=== PATIENT | female | born 1945 | race African-American/Black ===

== ENCOUNTER → 2017-02-18 | Outpatient (CLI) | payer MEDICARE, OTHER ==
[~2017-02-18] VITALS: Ht 162.6 cm; Wt 75.3 kg
[~2017-02-18] MED LIST: AMLO10TA2 PO; ASPI-630 PO; BUPIVACAINE 0.5% 50 ML VIAL. INJ ONE; IOHEXOL 300 MG/ML 50 ML VIAL. IJ ONE; methylPREDNISolone ACETATE 80 MG/ML VIAL. INT ART ONE
[2017-02-18 08:32] VITALS: BP 149/73
--- NOTE | 2017-02-18 09:31 | RAD ---
Fluoroscopically guided left hip joint injection, 02/18/2017: History: Arthritis Under local anesthesia, aseptic conditions and fluoroscopic guidance a 22-gauge spinal needle was passed into the left hip joint via an anterior approach. A small amount of iodinated contrast material was injected to confirm intra-articular positioning following which 80 mg of Depo-Medrol mixed with 3 cc of 0.5% Sensorcaine was injected into the joint as requested. The needle was then removed and hemostasis obtained. 0.7 minutes of fluoroscopy time was utilized. One fluoroscopic spot image was recorded. The patient tolerated the procedure well and left the department in good condition.
== END | disposition home or self-care (01) ==
LOC: RAD 07:41
PROVIDERS: ATTEND Nurse Practitioner Gerontology
DX: M25.552 Pain in left hip (principal)
CPT/HCPCS: 20605; 77002; J1040; J3490; Q9967

== ENCOUNTER → 2019-09-26 | Outpatient (CLI) | payer OTHER ==
[2017-02-18 08:32] VITALS: BP 149/73
[~2019-09-26] MED LIST changes: -AMLO10TA2 PO; +AMLO10TA8 PO; -BUPIVACAINE 0.5% 50 ML VIAL. INJ ONE; -IOHEXOL 300 MG/ML 50 ML VIAL. IJ ONE; -methylPREDNISolone ACETATE 80 MG/ML VIAL. INT ART ONE
--- NOTE | 2019-09-26 14:48 | RAD ---
Bilateral arterial duplex ultrasound of the extremities 09/26/2019 INDICATION: Bilateral lower extremity pain, edema. Foot coldness. STUDY: None Discussion: Ultrasound evaluation of the major arteries of the bilateral lower extremities color Doppler imaging spectral analysis. FINDINGS: There is diffuse atherosclerotic vascular disease. On the right biphasic waveforms are seen throughout without focal elevation of velocities. No changes and waveform morphology suggesting high-grade stenosis are appreciated. On the left there is a focal elevation in velocity in the proximal superficial femoral artery 95 cm per 2nd to 210 cm/s. Findings could reflect 50% or greater stenosis. Remaining left-sided velocities and waveforms are grossly unremarkable. Impression: Possible hemodynamically significant stenosis involving the proximal left SFA. Consider CT or conventional angiography for further evaluation. Electronically signed by: See Perez MD (09/26/2019 2:45 PM) [id number]
== END | disposition home or self-care (01) ==
LOC: US 14:03
PROVIDERS: ATTEND Physical Medicine & Rehabilitation
DX: I70.213 Atherosclerosis of native arteries of extremities with intermittent claudication, bilateral legs (principal)
CPT/HCPCS: 93925

== ENCOUNTER 2020-01-06 19:39 | Emergency (ER) | payer MEDICARE, OTHER ==
[~2020-01-06] VITALS: Ht 165.1 cm; Wt 77.2 kg
--- NOTE | 2020-01-06 19:59 | PHYS DOC ---
General Adult EDM: Chief Complaint: FOOT INJURY PAIN HPI: HPI: Patient is a 74 year old female who presents with complaint of injury to her right foot earlier today. Patient states that a pedro dropped onto her foot, injuring the dorsal aspect of her foot. She rates pain as moderate stating that pain is throbbing in nature and pain is worsened with weightbearing. She denies any other injuries. Patient states that she has taken a total of 2 hydrocodone for the pain but she still is having difficulty with weightbearing.[] Review of Systems: Review of Systems: Constitutional: Denies fever or chills. [] Respiratory: Denies cough or shortness of breath. [] Cardiovascular: Denies chest pain or edema. [] Musculoskeletal: Positive right foot pain. [] Integument: Denies rash. [] Heart Score: Risk Factors: Risk Factors: DM, Current or recent (<one month) smoker, HTN, HLP, family history of CAD, obesity. Risk Scores: Score 0 - 3: 2.5% MACE over next 6 weeks - Discharge Home Score 4 - 6: 20.3% MACE over next 6 weeks - Admit for Clinical Observation Score 7 - 10: 72.7% MACE over next 6 weeks - Early Invasive Strategies Allergies: Allergies: Allergies Coded Allergies Type Severity Reaction Last Updated Verified No Known Drug Allergies 02/18/17 No Physical Exam: PE: Constitutional: Well developed, well nourished, no acute distress, non-toxic appearance. [] Cardiovascular: Regular rate and rhythm[] Lungs & Thorax: Bilateral breath sounds clear to auscultation [] Extremities: Right foot demonstrates mild soft tissue swelling on the dorsal lateral aspect, overlying fourth and fifth metatarsals with tenderness overlying this area. [] EKG: EKG: [] Radiology/Procedures: Radiology/Procedures: [] Impression: PROCEDURE: FOOT RIGHT 3V EXAM: AP, oblique and lateral views of the right foot DATE: 01/06/2020 7:56 PM INDICATION: Crush injury COMPARISON: No Prior FINDINGS: No acute fracture or dislocation. Hallux valgus. Mild forefoot soft tissue swelling. Vascular calcifications are seen. Joint spaces are grossly preserved. Mild infiltration of Kagers fat pad may be reactive or related to low-lying soleus. IMPRESSION: No acute fracture or dislocation. Hallux valgus. Electronically signed by: Poncho Hanks MD (01/06/2020 8:50 PM) [facility] Course & Med Decision Making: Course & Med Decision Making Pertinent Labs and Imaging studies reviewed. (See chart for details) [] Jc Disclaimer: Jc Disclaimer: This electronic medical record was generated, in whole or in part, using a voice recognition dictation system. Departure Departure Impression: Primary Impression: Contusion of foot Qualified Codes: S90.31XA - Contusion of right foot, initial encounter Disposition: HOME, SELF-CARE Condition: STABLE Referrals: JAYY SCHULTZ MD (PCP) Patient Instructions: Contusion Scripts Diclofenac Sodium (DICLOFENAC SODIUM) 50 Mg Tablet. 1 TAB PO BID PRN for PAIN, #20 TAB Prov: ALEK SALCEDO Jr. DO 01/06/20 ALEK SALCEDO Jr. DO January 06, 2020 19:59
--- NOTE | 2020-01-06 20:53 | RAD ---
EXAM: AP, oblique and lateral views of the right foot DATE: 01/06/2020 7:56 PM INDICATION: Crush injury COMPARISON: No Prior FINDINGS: No acute fracture or dislocation. Hallux valgus. Mild forefoot soft tissue swelling. Vascular calcifications are seen. Joint spaces are grossly preserved. Mild infiltration of Kagers fat pad may be reactive or related to low-lying soleus. IMPRESSION: No acute fracture or dislocation. Hallux valgus. Electronically signed by: Poncho Hanks MD (01/06/2020 8:50 PM) [facility]
[2020-01-06] MEDS ORDERED: DICL50TA4 PO (21:30)
[2020-01-06 21:37] VITALS: BP 179/89
== END 2020-01-06 21:37 | disposition home or self-care (01) ==
LOC: ER 19:39
DX: S90.31XA Contusion of right foot, initial encounter (principal); W20.8XXA Other cause of strike by thrown, projected or falling object, initial encounter; Y93.89 Activity, other specified; Y92.89 Other specified places as the place of occurrence of the external cause; Y99.8 Other external cause status
CPT/HCPCS: 73630; 99283

== ENCOUNTER → 2021-04-29 | Outpatient (CLI) | payer MEDICARE ==
[~2021-04-29] MED LIST changes: +AMLO-187 PO; -AMLO10TA8 PO; +DICL50TA4 PO
--- NOTE | 2021-04-29 09:51 | RAD ---
EXAM: Bilateral lower extremity arterial Doppler sonogram. HISTORY: Claudication. TECHNIQUE: Moreno scale and color Doppler sonographic imaging of the lower extremity arteries with spec tral analysis was performed. COMPARISON: 09/26/2019. FINDINGS: There are abnormal monophasic waveforms within the right anterior tibial and dorsalis pedis arteries, consistent with hemodynamically significant proximal stenosis. The bilateral peroneal darling sam are not seen. There are normal triphasic and biphasic waveforms throughout the remainder of the lower extremity arteries. There is an elevated peak systolic velocity within the right common femoral artery, measuring 182 cm/s. IMPRESSION: 1. Abnormal monophasic waveforms within the right anterior tibial artery and dorsalis pedis artery, s uggesting hemodynamically significant proximal stenosis. There is also an elevated peak systolic [place] within the right common femoral artery favoring mild stenosis. 2. Nonvisualization of the peroneal arteries. 3. No additional evidence of hemodynamically significant stenosis or occlusion involving the lower ex tremity arteries. Electronically signed by: Inez Hayden MD (04/29/2021 9:49 AM) [id number]
== END ==
LOC: US 08:45
PROVIDERS: ATTEND Podiatrist
DX: I70.201 Unspecified atherosclerosis of native arteries of extremities, right leg (principal)
CPT/HCPCS: 93925